=== PATIENT | female | born 1970 | race Caucasian/White ===

== ENCOUNTER 2018-05-23 10:23 | Day surgery (SDC) | payer BC ==
[~2018-05-23] VITALS: Ht 154.9 cm; Wt 79.0 kg
[2018-05-23 11:38] VITALS: BP 148/80; PULSE 83; TEMP 97.9
[2018-05-23] MEDS ORDERED: NORCO 325 MG-51 TAB PO (14:14)
[2018-05-23] MEDS ORDERED: MOTRIN 600600 MG/TAB PO (14:15)
[2018-05-23] MEDS ORDERED: COLACE 100100 MG/CAP PO (14:15)
[2018-05-23 14:25] VITALS: BP 127/47; PULSE 52; TEMP 97.2
[2018-05-23 14:40] VITALS: BP 135/69; PULSE 50
[2018-05-23 14:55] VITALS: BP 140/61; PULSE 47
[2018-05-23 15:10] VITALS: BP 127/76; PULSE 46
[2018-05-23 15:40] VITALS: BP 142/72; PULSE 49
== END 2018-05-23 16:30 | disposition home or self-care (01) ==
LOC: SDCO 10:23
DX: K80.10 Calculus of gallbladder with chronic cholecystitis without obstruction (principal); Z80.0 Family history of malignant neoplasm of digestive organs; Z80.51 Family history of malignant neoplasm of kidney; J45.909 Unspecified asthma, uncomplicated
CPT/HCPCS: J2405; J2704; J7120; Q9967